=== PATIENT | male | born 1990 | race Caucasian/White ===

== ENCOUNTER → 2024-03-27 06:27 | Day surgery (SDC) | payer OTHER, SELFPAY | LOC: GI 06:27 | PROVIDERS: ATTENDING PHYSICIAN Specialist | DX: K21.9 Gastro-esophageal reflux disease without esophagitis (principal); K22.70 Barrett's esophagus without dysplasia | CPT/HCPCS: 43239; 88305 ==

== ENCOUNTER → 2025-09-06 06:51 | Outpatient (REF) | payer OTHER, SELFPAY | LOC: MRI 06:51 | PROVIDERS: ATTENDING PHYSICIAN Specialist; FAMILY PHYSICIAN Family Medicine | DX: M25.561 Pain in right knee (principal) | CPT/HCPCS: 73721 ==